=== PATIENT | female | born 1990 | race Two or more races ===

== ENCOUNTER 2017-05-07 12:25 | Emergency (ER) | payer SELFPAY ==
[~2017-05-07] VITALS: Ht 162.6 cm; Wt 96.8 kg
[~2017-05-07 12:25] MED LIST: BLADDER PILL PO; KEFLEX500 MG PO; LOVENOX60 MG/0.6 SC; PRENATAL TABLE1 EAC3 PO
[2017-05-07 14:09] LABS: CHLORIDE 107 mEq/L (99-109); POTASSIUM 3.9 mEq/L (3.7-5.4); SODIUM 140 mEq/L (136-147)
[2017-05-07 14:11] LABS: GLUCOSE 118 mg/dL (70-99)
[2017-05-07 14:12] LABS: ANION GAP 8 MEQ/L (2-14)
[2017-05-07 14:13] LABS: TOTAL BILIRUBIN 0.7 mg/dL (0.0-1.0)
[2017-05-07 14:15] LABS: ALKALINE PHOSPHATASE 79 IU/L (3-129); GFR ESTIMATE (CALCULATED) > 59 mL/min/
[2017-05-07 14:16] LABS: HEMATOCRIT 38.2 % (36.0-46.0); MCH 23.6 PG (29.0-34.0); MCHC 31.7 G/DL (30.0-36.0); MCV 74.5 FL (83-99); MEAN PLAT.VOLUME 10.2 uM^3 (9.5-12.4); PLATELET COUNT 366 K/uL (156-360); RBC DIS.WIDTH-CV 14.7 % (11.8-14.6); RBC DIS.WIDTH-SD 39.5 % (39-53); RED BLOOD COUNT 5.13 M/uL (3.80-5.20); UREA NITROGEN (BUN) 9 mg/dL (9-23)
[2017-05-07 14:23] LABS: QUANTITATIVE HCG < 4.0 MIU/ML
[2017-05-07] MEDS ORDERED: MOTRIN800 MG PO (15:28)
[2017-05-07 15:52] VITALS: BP 119/75
== END 2017-05-07 15:53 | disposition home or self-care (01) ==
LOC: EME 12:25
PROVIDERS: Nurse Practitioner Family
DX: R51 Headache (principal); R19.7 Diarrhea, unspecified; R42 Dizziness and giddiness; R11.0 Nausea; R03.0 Elevated blood-pressure reading, without diagnosis of hypertension; Z86.718 Personal history of other venous thrombosis and embolism; Z86.711 Personal history of pulmonary embolism; Z79.01 Long term (current) use of anticoagulants
CPT/HCPCS: 70450; 80053; 81003; 84702; 85027; 99281; 99284; J1885

== ENCOUNTER 2018-02-17 22:57 | Emergency (ER) | payer OTHER ==
[~2018-02-17] VITALS: Ht 160 cm; Wt 93.6 kg
[~2018-02-17 22:57] MED LIST changes: +MOTRIN800 MG PO
[2018-02-17 23:25] LABS: HEMATOCRIT 40.2 % (36.0-46.0); HEMOGLOBIN 13.3 G/DL (11.9-15.5); MCH 26.1 PG (29.0-34.0); MCHC 33.1 G/DL (30.0-36.0); PLATELET COUNT 343 K/uL (156-360); RBC DIS.WIDTH-CV 13.7 % (11.8-14.6); RED BLOOD COUNT 5.09 M/uL (3.80-5.20); WHITE BLOOD COUNT 8.9 K/uL (4.1-10.2)
[2018-02-17 23:34] LABS: CHLORIDE 106 mEq/L (99-109); POTASSIUM 3.7 mEq/L (3.7-5.4); SODIUM 140 mEq/L (136-147)
[2018-02-17 23:35] LABS: GLUCOSE 118 mg/dL (70-99)
[2018-02-17 23:39] LABS: CREATININE 0.9 mg/dL (0.6-1.3); GFR ESTIMATE (CALCULATED) > 59 mL/min/
[2018-02-17 23:40] LABS: UREA NITROGEN (BUN) 9 mg/dL (9-23)
[2018-02-17 23:47] LABS: TROP-I INTERPRETATION NEGATIVE; TROPONIN-I < 0.01 ng/mL (0.0-0.30)
[2018-02-17 23:50] LABS: D-DIMER ELISA < 150.00 ng/mLDDU (<230)
[2018-02-18 01:22] VITALS: BP 119/82
== END 2018-02-18 01:22 | disposition home or self-care (01) ==
LOC: EME 22:57
PROVIDERS: Physician Assistant
DX: R07.89 Other chest pain (principal); R06.02 Shortness of breath; F41.9 Anxiety disorder, unspecified; Z53.20 Procedure and treatment not carried out because of patient's decision for unspecified reasons; R94.31 Abnormal electrocardiogram [ECG] [EKG]; Z86.718 Personal history of other venous thrombosis and embolism
CPT/HCPCS: 71046; 80048; 81003; 84484; 85027; 85379; 93005; 99281; 99284